=== PATIENT | male | born 1940 | race Caucasian/White ===

== ENCOUNTER 2016-08-17 06:47 | Inpatient (IN) | payer MEDICARE, OTHER ==
[2016-08-17] MEDS ORDERED: Sodium Chloride 0.9% 10 ML Syringe FLUSH PRN ×4 (07:55→12:33)
[2016-08-17] MEDS ORDERED: Lactated Ringers 1,000 ML IV SCH (08:00)
[2016-08-17] MEDS ORDERED: Albuterol/Ipratropium 3.0-0.5 MG/3 ML Neb Soln NEB ONE (08:00)
--- NOTE | 2016-08-17 08:01 | EDM.PDOC ---
ED HPI GENERAL MEDICAL PROBLEM - General Chief Complaint: Gastrointestinal Problem Stated Complaint: BLEEDING Time Seen by Provider: 08/17/16 07:41 Source of Information: Reports: Patient, Family, RN Notes Reviewed History Limitations: Reports: No Limitations - History of Present Illness INITIAL COMMENTS - FREE TEXT/NARRATIVE: 75-year-old gentleman presents emergency department today with bright red blood per rectum, he has had a history of this several years ago secondary to diverticular disease. For this particular event he started feeling dizzy and lightheaded yesterday had some bright red blood per rectum he was incontinent of bloody stool this morning while in the ED he did have a moderate volume bright red blood stool Abdominal Pain Score (Numeric/FACES): 3 - Related Data Allergies Allergy/AdvReac Type Severity Reaction Status Date / Time codeine Allergy Facial Verified 08/17/16 07:16 Swelling Penicillins Allergy Swelling Verified 08/17/16 07:16 Home Meds: Home Meds *Prostate Pill 1 tab PO DAILY 08/17/16 [History] Aspirin 1 tab PO DAILY 08/17/16 [History] Fexofenadine [Alanna] 1 tab PO DAILY 08/17/16 [History] Fluticasone Propionate [Flovent HFA] 1 puff INH ASDIRECTED 08/17/16 [History] Omeprazole Magnesium [Prilosec Otc] 1 tab PO DAILY 08/17/16 [History] Triamterene/Hydrochlorothiazid [Triamterene-HCTZ 37.5-25 MG] 1 tab PO DAILY [History] Past Medical History Cardiovascular History: Reports: CAD, High Cholesterol, Hypertension, [place] Respiratory History: Reports: COPD, SOB Gastrointestinal History: Reports: GERD, GI Bleed Genitourinary History: Reports: BPH Musculoskeletal History: Reports: Fracture Psychiatric History: Reports: Anxiety Hematologic History: Reports: Blood Transfusion(s) - Past Surgical History Cardiovascular Surgical History: Reports: Coronary Artery Bypass GI Surgical History: Reports: Appendectomy, Colon, Hernia Repair/Other Social & Family History - Tobacco Use Smoking Status *Q: Light Tobacco Smoker Years of Tobacco use: 50 Packs/Tins Daily: 0.3 - Recreational Drug Use Recreational Drug Use: No ED ROS GENERAL - Review of Systems Review Of Systems: See Below Constitutional: Denies: Fever, Chills HEENT: Reports: No Symptoms Respiratory: Reports: No Symptoms Cardiovascular: Reports: No Symptoms GI/Abdominal: Reports: Bloody Stool. Denies: Abdominal Pain, Nausea, Vomiting : Reports: No Symptoms Musculoskeletal: Reports: No Symptoms Skin: Reports: No Symptoms Neurological: Reports: No Symptoms ED EXAM, GI/ABD - Physical Exam Exam: See Below Text/Narrative:: General: Elderly male, not in any distress, alert and oriented x3 HEENT: head is atraumatic normocephalic, eyes pupils equal round Neck: Supple no thyromegaly no tracheal deviation. Nodes: Cervical nodes subclavicular nodes nontender no palpable lymphadenopathy noted. Lungs: Wheezing mid to lower lung carter bilaterally CV: Regular rate and rhythm S1 and S2 appreciated no murmurs rubs or gallops noted. Abdomen: Soft, nontender, no palpable masses or organomegaly appreciated, no distention no guarding bowel sounds are present, . Neuro: Cranial nerves II through XII grossly intact Skin: Warm and dry, intact Extremities: No lower extremity edema appreciated, Course - Vital Signs Last Recorded V/S: Last Vital Signs Temp 96.4 F 08/17/16 07:13 Pulse 63 08/17/16 08:26 Resp 16 08/17/16 08:26 BP 141/91 H 08/17/16 08:26 Pulse Ox 97 08/17/16 08:26 - Orders/Labs/Meds Orders: Active Orders 24 hr Category Date Time Status Peripheral IV Care [RC] . DIRECTED Care 08/17/16 07:56 Active Peripheral IV Care [RC] . DIRECTED Care 08/17/16 07:57 Active RT Aerosol Therapy [RC] ASDIRECTED Care 08/17/16 08:00 Active BLOOD BANK HOLD SPECIMEN [BBK] Urgent Lab 08/17/16 08:05 Received Lactated Ringers [Ringers, Lactated] 1,000 ml Med 08/17/16 08:00 Active IV ASDIRECTED Pantoprazole 80 MG in Sodium Chloride 0.9% @ 10 MLS/HR( Med 08/17/16 09:15 Ordered 100ml) Sodium Chloride 0.9% [Normal Saline] 100 ml Pantoprazole [ProTONIX IV] 80 mg IV 10 mls/hr Sodium Chloride 0.9% [Saline Flush] Med 08/17/16 07:55 Active 10 ml FLUSH ASDIRECTED PRN Sodium Chloride 0.9% [Saline Flush] Med 08/17/16 07:55 Active 10 ml FLUSH ASDIRECTED PRN Sodium Chloride 0.9% [Saline Flush] Med 08/17/16 07:56 Active 10 ml FLUSH ASDIRECTED PRN Peripheral IV Insertion Adult [OM.PC] Urgent Oth 08/17/16 07:55 Ordered Peripheral IV Insertion Adult [OM.PC] Urgent Oth 08/17/16 07:56 Ordered Medication Orders Lactated Ringer's (Ringers, Lactated) 1,000 mls @ 500 mls/hr IV ASDIRECTED [place] Last Admin: 08/17/16 08:13 Dose: 500 mls/hr Pantoprazole Sodium 80 mg/ (Sodium Chloride) 100 mls @ 10 mls/hr IV .Q10H [place] Sodium Chloride (Saline Flush) 10 ml FLUSH ASDIRECTED PRN PRN Reason: Keep Vein Open Last Admin: 08/17/16 08:14 Dose: 10 ml Sodium Chloride (Saline Flush) 10 ml FLUSH ASDIRECTED PRN PRN Reason: Keep Vein Open Last Admin: 08/17/16 08:14 Dose: 10 ml Sodium Chloride (Saline Flush) 10 ml FLUSH ASDIRECTED PRN PRN Reason: Keep Vein Open Labs: Laboratory Tests 08/17/16 08/17/16 08/17/16 Range/Units 08:05 08:05 08:05 WBC 8.1 (4.5-11.0) K/uL RBC 4.62 (4.30-5.90) M/uL Hgb 14.1 (12.0-15.0) g/dL Hct 42.2 (40.0-54.0) % MCV 91 (80-98) fL MCH 31 (27-31) pg MCHC 33 (32-36) % Plt Count 217 (150-400) K/uL Neut % (Auto) 80 H (36-66) % Lymph % (Auto) 12 L (24-44) % [place] % (Auto) 7 H (2-6) % Eos % (Auto) 1 L (2-4) % Baso % (Auto) 0 (0-1) % PT 10.7 (9.5-12.0) sec INR 1.00 (0.80-1.20) APTT 26.1 L (27.0-36.0) sec Sodium 139 L (140-148) mmol/L Potassium 4.3 (3.6-5.2) mmol/L Chloride 104 (100-108) mmol/L Carbon Dioxide 25 (21-32) mmol/L Anion Gap 14.3 H (5.0-14.0) mmol/L BUN 25 H (7-18) mg/dL Creatinine 1.1 (0.8-1.3) mg/dL Est Cr Clr Drug Dosing 60.83 mL/min Estimated GFR (MDRD) > 60 (>60) Glucose 114 H (74-106) mg/dL Lactic Acid (0.4-2.0) mmol/L Calcium 8.9 (8.5-10.1) mg/dL Total Bilirubin 1.9 H (0.2-1.0) mg/dL AST 18 (15-37) U/L ALT 23 (12-78) U/L Alkaline Phosphatase 63 (46-116) U/L Total Protein 6.5 (6.4-8.2) g/dL Albumin 3.7 (3.4-5.0) g/dL Globulin 2.8 (2.3-3.5) g/dL Albumin/Globulin Ratio 1.3 (1.2-2.2) 08/17/16 Range/Units 08:05 WBC (4.5-11.0) K/uL RBC (4.30-5.90) M/uL Hgb (12.0-15.0) g/dL Hct (40.0-54.0) % MCV (80-98) fL MCH (27-31) pg MCHC (32-36) % Plt Count (150-400) K/uL Neut % (Auto) (36-66) % Lymph % (Auto) (24-44) % [place] % (Auto) (2-6) % Eos % (Auto) (2-4) % Baso % (Auto) (0-1) % PT (9.5-12.0) sec INR (0.80-1.20) APTT (27.0-36.0) sec Sodium (140-148) mmol/L Potassium (3.6-5.2) mmol/L Chloride (100-108) mmol/L Carbon Dioxide (21-32) mmol/L Anion Gap (5.0-14.0) mmol/L BUN (7-18) mg/dL Creatinine (0.8-1.3) mg/dL Est Cr Clr Drug Dosing mL/min Estimated GFR (MDRD) (>60) Glucose (74-106) mg/dL Lactic Acid 1.2 (0.4-2.0) mmol/L Calcium (8.5-10.1) mg/dL Total Bilirubin (0.2-1.0) mg/dL AST (15-37) U/L ALT (12-78) U/L Alkaline Phosphatase (46-116) U/L Total Protein (6.4-8.2) g/dL Albumin (3.4-5.0) g/dL Globulin (2.3-3.5) g/dL Albumin/Globulin Ratio (1.2-2.2) Meds: Medications Generic Name Dose Route Start Last Admin Trade Name Freq PRN Reason Stop Dose Admin Lactated Ringer's 1,000 mls @ 500 mls/hr 08/17/16 08:00 08/17/16 08:13 Ringers, Lactated IV 500 mls/hr ASDIRECTED [place] Administration Pantoprazole Sodium 80 mg/ 100 mls @ 10 mls/hr 08/17/16 09:15 Sodium Chloride IV .Q10H [place] Sodium Chloride 10 ml 08/17/16 07:55 08/17/16 08:14 Saline Flush FLUSH 10 ml ASDIRECTED PRN Administration Keep Vein Open Sodium Chloride 10 ml 08/17/16 07:55 08/17/16 08:14 Saline Flush FLUSH 10 ml ASDIRECTED PRN Administration Keep Vein Open Sodium Chloride 10 ml 08/17/16 07:56 Saline Flush FLUSH ASDIRECTED PRN Keep Vein Open Discontinued Medications Generic Name Dose Route Start Last Admin Trade Name Freq PRN Reason Stop Dose Admin Albuterol/Ipratropium 3 ml 08/17/16 08:00 08/17/16 08:24 Duoneb 3.0-0.5 Mg/3 Ml NEB 08/17/16 08:01 3 ml ONETIME ONE Administration Pantoprazole Sodium 80 mg 08/17/16 09:11 Protonix Iv IVPUSH 08/17/16 09:12 .BOLUS ONE Departure - Departure Time of Disposition: 09:19 Disposition: Admitted As Inpatient 67 Condition: Fair Clinical Impression: Blood per rectum - Discharge Information Forms: ED Department Discharge - My Orders Last 24 Hours: My Active Orders 08/17/16 07:55 Sodium Chloride 0.9% [Saline Flush] 10 ml FLUSH ASDIRECTED PRN Sodium Chloride 0.9% [Saline Flush] 10 ml FLUSH ASDIRECTED PRN Peripheral IV Insertion Adult [OM.PC] Urgent 08/17/16 07:56 Peripheral IV Care [RC] . DIRECTED Sodium Chloride 0.9% [Saline Flush] 10 ml FLUSH ASDIRECTED PRN Peripheral IV Insertion Adult [OM.PC] Urgent 08/17/16 07:57 Peripheral IV Care [RC] . DIRECTED 08/17/16 08:00 RT Aerosol Therapy [RC] ASDIRECTED Lactated Ringers [Ringers, Lactated] 1,000 ml IV ASDIRECTED 08/17/16 08:05 BLOOD BANK HOLD SPECIMEN [BBK] Urgent 08/17/16 09:15 Pantoprazole 80 MG in Sodium Chloride 0.9% @ 10 MLS/HR(100ml) Sodium Chloride 0.9% [Normal Saline] 100 ml Pantoprazole [ProTONIX IV] 80 mg IV 10 mls/hr - Assessment/Plan Last 24 Hours: My Active Orders 08/17/16 07:55 Sodium Chloride 0.9% [Saline Flush] 10 ml FLUSH ASDIRECTED PRN Sodium Chloride 0.9% [Saline Flush] 10 ml FLUSH ASDIRECTED PRN Peripheral IV Insertion Adult [OM.PC] Urgent 08/17/16 07:56 Peripheral IV Care [RC] . DIRECTED Sodium Chloride 0.9% [Saline Flush] 10 ml FLUSH ASDIRECTED PRN Peripheral IV Insertion Adult [OM.PC] Urgent 08/17/16 07:57 Peripheral IV Care [RC] . DIRECTED 08/17/16 08:00 RT Aerosol Therapy [RC] ASDIRECTED Lactated Ringers [Ringers, Lactated] 1,000 ml IV ASDIRECTED 08/17/16 08:05 BLOOD BANK HOLD SPECIMEN [BBK] Urgent 08/17/16 09:15 Pantoprazole 80 MG in Sodium Chloride 0.9% @ 10 MLS/HR(100ml) Sodium Chloride 0.9% [Normal Saline] 100 ml Pantoprazole [ProTONIX IV] 80 mg IV 10 mls/hr Plan: Assessment Acuity = acute Site and laterality = bright red blood per rectum complicating a patient with known history of diverticular disease, coronary artery disease Etiology = unclear etiology Manifestations = dizziness Location of injury = home Lab values = hemoglobin stable at 14.1 sodium low at 139 consistent hyponatremia total bilirubin elevated 1.9 consistent with hyperbilirubinemia Plan Called discussed case with hospitalist elementary education tutor he agreed to come and evaluate the patient in the ED for admission, 2 IVs have been placed lactated Ringer's running he started on a Protonix drip with a bolus to 2 units of blood have been held Patient was in agreement with the plan all questions were answered. This note was dictated using [employer] voice recognition software please call with any questions.
[2016-08-17] MEDS ORDERED: Pantoprazole 40 MG Vial IVPUSH ONE (09:11)
[2016-08-17] MEDS ORDERED: Sodium Chloride 0.9% 100 ML with Pantoprazole 80 MG IV SCH ×2 (09:15)
--- NOTE | 2016-08-17 12:06 | PCM.HP ---
H&P History of Present Illness - General Date of Service: 08/17/16 Admit Problem/Dx: Admission Diagnosis/Problem Admission Diagnosis/Problem Bleeding Source of Information: Patient, Family, Provider, RN Notes Reviewed History Limitations: Reports: No Limitations - History of Present Illness Initial Comments - Free Text/Narative: This patient is a 75-year-old gentleman was admitted from the emergency department to the intensive care unit with a GI bleed. He did experience some bleeding yesterday morning but it seemed to stop as the day went on, early this morning experience recurrent bleeding and now has presented to the emergency room this morning. He did have a bloody bowel movement in the emergency department, hemoglobin is still fairly good at 14. Thus far he is had no hemodynamic instability. He has a previous history of bleeding diverticuli approximately 18 years ago and did undergo partial colon resection at that time. He had another episode of bleeding approximately 9 months ago that was felt to be in the region of the previous anastomosis in the colon. He reports his stools have been fairly black in color or very dark maroon. There is no history of significant ulcer disease or upper intestinal inflammation. Abdominal Pain Score (Numeric/FACES): 3 - Related Data Allergies/Adverse Reactions: Allergies Allergy/AdvReac Type Severity Reaction Status Date / Time codeine Allergy Facial Verified 08/17/16 07:16 Swelling Penicillins Allergy Swelling Verified 08/17/16 07:16 Home Medications: Home Meds *Prostate Pill 1 tab PO DAILY 08/17/16 [History] Aspirin 1 tab PO DAILY 08/17/16 [History] Fexofenadine [Alanna] 1 tab PO DAILY 08/17/16 [History] Fluticasone Propionate [Flovent HFA] 1 puff INH ASDIRECTED 08/17/16 [History] Omeprazole Magnesium [Prilosec Otc] 1 tab PO DAILY 08/17/16 [History] Triamterene/Hydrochlorothiazid [Triamterene-HCTZ 37.5-25 MG] 1 tab PO DAILY [History] Past Medical History Cardiovascular History: Reports: CAD, High Cholesterol, Hypertension, [place] Respiratory History: Reports: COPD, SOB Gastrointestinal History: Reports: GERD, GI Bleed Genitourinary History: Reports: BPH Musculoskeletal History: Reports: Fracture Psychiatric History: Reports: Anxiety Hematologic History: Reports: Blood Transfusion(s) - Past Surgical History Cardiovascular Surgical History: Reports: Coronary Artery Bypass GI Surgical History: Reports: Appendectomy, Colon, Hernia Repair/Other Social & Family History - Tobacco Use Smoking Status *Q: Light Tobacco Smoker Years of Tobacco use: 50 Packs/Tins Daily: 0.3 - Recreational Drug Use Recreational Drug Use: No H&P Review of Systems - Review of Systems: Review Of Systems: See Below General: Reports: Weakness. Denies: Fever, Chills HEENT: Reports: No Symptoms Pulmonary: Reports: Shortness of Breath. Denies: Wheezing, Pleuritic Chest Pain , Cough, Sputum Cardiovascular: Reports: Dyspnea on Exertion, Lightheadedness. Denies: Chest Pain, Palpitations, Orthopnea, PND, Edema, Syncope Gastrointestinal: Reports: Black Stool, Bloody Stool. Denies: Abdominal Pain, Anorexia, Diarrhea, Decreased Appetite, Nausea, Vomiting Genitourinary: Reports: No Symptoms Musculoskeletal: Reports: No Symptoms Skin: Reports: No Symptoms Psychiatric: Reports: No Symptoms Neurological: Reports: No Symptoms Hematologic/Lymphatic: Reports: No Symptoms Immunologic: Reports: No Symptoms Exam - Exam Exam: See Below - Vital Signs Vital Signs: Last Vital Signs Temp 96.6 F 08/17/16 10:46 Pulse 77 08/17/16 10:46 Resp 16 08/17/16 10:46 BP 158/106 H 08/17/16 10:46 Pulse Ox 96 08/17/16 10:46 Weight: 240 lb 1.334 oz - Exam Quality Assessment: DVT Prophylaxis General: Alert, Oriented, Cooperative HEENT: Conjunctiva Clear, Mucosa Moist & [place], Normal Nasal Septum, Posterior Pharynx Clear, Pupils Equal, Pupils Reactive. No: Hearing Intact Neck: Supple, Trachea Midline, +2 Carotid Pulse wo Bruit Lungs: Clear to Auscultation, Normal Respiratory Effort Cardiovascular: Regular Rate, Regular Rhythm, Normal S1, Normal S2. No: Irregular Rhythm, Bradycardia, Tachycardia, Systolic Murmur, Diastolic Murmur Abdomen: Normal Bowel Sounds, Soft Back Exam: Normal Inspection, Full Range of Motion, NT Extremities: 3, Normal Inspection, 10 Skin: Warm, Dry, Intact Neurological: Cranial Nerves Intact, Strength Equal Bilateral Neuro Extensive - Mental Status: Alert, Oriented x3, Normal Mood/Affect, Normal Cognition - Patient Data Result Diagrams: 08/17/16 08:05 08/17/16 08:05 *Q Meaningful Use (ADM) - VTE *Q VTE Criteria *Q: VTE Pharmacological Contraindications *Q: Active Hemorrhage - VTE Risk Assess *Q Each Risk Factor Represents 1 Point: Obesity (BMI greater than 30) Total Score 1 Point Risk Factors: 1 Each Risk Factor Represents 2 Points: Age 60 - 74 Years Total Score 2 Point Risk Factors: 2 Each Risk Factor Represents 3 Points: None Total Score 3 Point Risk Factors: 0 Each Risk Factor Represents 5 Points: None Total Score 5 Point Risk Factors: 0 Venous Thromboembolism Risk Factor Score *Q: 3 - Stroke *Q Stroke Criteria *Q: - AMI *Q AMI Criteria *Q: Problem List Initiated/Reviewed/Updated: Yes Orders Last 24hrs: Active Orders 24 hr Category Date Time Status Bisacodyl [Dulcolax] Med 08/17/16 13:00 Once 10 mg PO ONETIME ONE Bisacodyl [Dulcolax] Med 08/17/16 20:00 Once 10 mg PO ONETIME ONE Polyethylene Glycol 3350 [MiraLAX] Med 08/17/16 17:00 Once 238 gm PO ONETIME ONE Resuscitation Status Routine Resus Stat 08/17/16 11:04 Ordered Medication Orders Bisacodyl (Dulcolax) 10 mg PO ONETIME ONE Stop: 08/17/16 13:01 Bisacodyl (Dulcolax) 10 mg PO ONETIME ONE Stop: 08/17/16 20:01 Lactated Ringer's (Ringers, Lactated) 1,000 mls @ 500 mls/hr IV ASDIRECTED [facility] Last Admin: 08/17/16 08:13 Dose: 500 mls/hr Pantoprazole Sodium 80 mg/ (Sodium Chloride) 100 mls @ 10 mls/hr IV .Q10H [facility] Last Admin: 08/17/16 09:33 Dose: 10 mls/hr Polyethylene Glycol (Miralax) 238 gm PO ONETIME ONE Stop: 08/17/16 17:01 Sodium Chloride (Saline Flush) 10 ml FLUSH ASDIRECTED PRN PRN Reason: Keep Vein Open Last Admin: 08/17/16 08:14 Dose: 10 ml Sodium Chloride (Saline Flush) 10 ml FLUSH ASDIRECTED PRN PRN Reason: Keep Vein Open Last Admin: 08/17/16 08:14 Dose: 10 ml Sodium Chloride (Saline Flush) 10 ml FLUSH ASDIRECTED PRN PRN Reason: Keep Vein Open Assessment/Plan Comment:: ASSESSMENT AND PLAN GI bleed-he is experienced bleeding yesterday as well as early this morning and again had another bloody bowel movement while in the emergency department. Thus far is been hemodynamically stable and initial hemoglobin level is 14. -Maintain 2 IV sites -Given Protonix 80 mg IV in the ED -Continuous infusion of Protonix 8 mg per hour -Colonoscopy prep -Clear liquid diet, nothing by mouth after midnight -Type and cross to hold 2 units of red blood cells for for their use if needed -Serial hemoglobins every 8 hours Coronary artery disease-status post coronary artery bypass surgery 3-4 years ago. Currently asymptomatic with no symptoms of chest pain or pressure -Continue outpatient medical management COPD-well compensated at the present time -Supplemental oxygen as needed -Nebulizer therapy with albuterol -Continue outpatient medical regimen MAINTENANCE ISSUES -DVT prophylaxis;SCUDs, hold on anticoagulation given active bleeding -GI prophylaxis;Protonix as above -Vidal catheter;not indicated -Nutrition;clear liquid diet nothing by mouth after midnight -Nicotine dependence;not required CODE STATUS-full code ADMISSION STATUS-patient will be admitted to inpatient status, expect at least a 2 night hospital stay for evaluation and management of problems as outlined above. At the time of this admission I do not reasonably expected evaluation and management of this problem will require more than a 96 hour hospital stay. DISPOSITION-anticipate discharge to home after the hospital stay. PRIMARY CARE PROVIDER-receives his medical care with primary care in the [facility]
[2016-08-17] MEDS ORDERED: Ondansetron 4 MG/2 ML SDV IV PRN (12:33)
[2016-08-17] MEDS ORDERED: Morphine 2 MG/ML Syringe IVPUSH PRN (12:33)
[2016-08-17] MEDS ORDERED: Albuterol 0.083% 2.5 MG/3 ML Neb Soln NEB PRN (12:33)
[2016-08-17] MEDS ORDERED: FLUTICASONE PROPIONATE INH SCH (12:33)
[2016-08-17] MEDS ORDERED: Zolpidem 5 MG Tab PO PRN (12:33)
[2016-08-17] MEDS ORDERED: LORazepam 2 MG/ML MDV IVPUSH PRN (12:33)
[2016-08-17] MEDS ORDERED: Bisacodyl 5 MG Tab PO ONE ×2 (13:00→20:00)
[2016-08-17] MEDS: Mometasone Furoate Powder 220 MCG/Puff 14 Dose Inhaler INH SCH (14:32)
[2016-08-17] MEDS: Lactated Ringers 1,000 ML IV SCH (16:21)
[2016-08-17] MEDS ORDERED: Polyethylene Glycol 3350 Powder 238 GM Bot PO ONE (17:00)
[2016-08-17] MEDS: Sodium Chloride 0.9% 100 ML with Pantoprazole 80 MG IV SCH ×2 (19:49)
[2016-08-18] MEDS: Lactated Ringers 1,000 ML IV SCH ×2 (00:28→08:25)
[2016-08-18] MEDS: Sodium Chloride 0.9% 100 ML with Pantoprazole 80 MG IV SCH ×2 (05:55)
[2016-08-18] MEDS: Mometasone Furoate Powder 220 MCG/Puff 14 Dose Inhaler INH SCH (07:12)
[2016-08-18] MEDS ORDERED: Aspirin 81 MG Tab.Chew PO SCH (09:00)
--- NOTE | 2016-08-18 09:36 | PCM.PN ---
- General Info Date of Service: 08/18/16 Functional Status: Reports: ambulating, urinating - Review of Systems General: Reports: No Symptoms Pulmonary: Reports: no symptoms Cardiovascular: Reports: No Symptoms Gastrointestinal: Reports: No symptoms Systems Review Comment:: This patient has been stable since admission yesterday with no further evidence of active bleeding. After initial hydration hemoglobin has remained stable and he has completed his colonoscopy prep. Vital signs have been within the desired range and he has remained afebrile. Colonoscopy and EGD are pending this morning. - Patient Data Vitals - most recent: Last Vital Signs Temp 97.7 F 08/18/16 08:00 Pulse 59 L 08/18/16 08:00 Resp 15 08/18/16 08:00 BP 160/100 H 08/18/16 08:00 Pulse Ox 96 08/18/16 08:00 Weight - most recent: 241 lb 15.987 oz I&O - last 24 hours: Intake & Output 08/17/16 08/18/16 08/18/16 22:59 06:59 14:59 Intake Total 2540 1674 Output Total 1725 900 Balance 815 1674 -900 Lab Results last 24 hrs: Laboratory Results - last 24 hr 08/17/16 08/17/16 08/18/16 Range/Units 12:41 18:39 00:34 WBC 6.9 7.9 8.5 (4.5-11.0) K/uL RBC 4.22 L 4.63 4.09 L (4.30-5.90) M/uL Hgb 12.8 14.0 12.6 (12.0-15.0) g/dL Hct 38.9 L 42.5 37.6 L (40.0-54.0) % MCV 92 92 92 (80-98) fL MCH 30 30 31 (27-31) pg MCHC 33 33 34 (32-36) % Plt Count 206 218 204 (150-400) K/uL Neut % (Auto) 72 H 77 H 71 H (36-66) % Lymph % (Auto) 19 L 16 L 18 L (24-44) % Trigg % (Auto) 8 H 7 H 9 H (2-6) % Eos % (Auto) 1 L 1 L 2 (2-4) % Baso % (Auto) 0 0 0 (0-1) % Sodium (140-148) mmol/L Potassium (3.6-5.2) mmol/L Chloride (100-108) mmol/L Carbon Dioxide (21-32) mmol/L Anion Gap (5.0-14.0) mmol/L BUN (7-18) mg/dL Creatinine (0.8-1.3) mg/dL Est Cr Clr Drug Dosing mL/min Estimated GFR (MDRD) (>60) Glucose (74-106) mg/dL Calcium (8.5-10.1) mg/dL 08/18/16 08/18/16 Range/Units 05:11 05:11 WBC 7.0 (4.5-11.0) K/uL RBC 4.01 L (4.30-5.90) M/uL Hgb 12.2 (12.0-15.0) g/dL Hct 36.9 L (40.0-54.0) % MCV 92 (80-98) fL MCH 30 (27-31) pg MCHC 33 (32-36) % Plt Count 189 (150-400) K/uL Neut % (Auto) 70 H (36-66) % Lymph % (Auto) 18 L (24-44) % Trigg % (Auto) 10 H (2-6) % Eos % (Auto) 3 (2-4) % Baso % (Auto) 0 (0-1) % Sodium 140 (140-148) mmol/L Potassium 3.7 (3.6-5.2) mmol/L Chloride 106 (100-108) mmol/L Carbon Dioxide 28 (21-32) mmol/L Anion Gap 5.7 (5.0-14.0) mmol/L BUN 15 (7-18) mg/dL Creatinine 1.0 (0.8-1.3) mg/dL Est Cr Clr Drug Dosing 67.97 mL/min Estimated GFR (MDRD) > 60 (>60) Glucose 96 (74-106) mg/dL Calcium 8.3 L (8.5-10.1) mg/dL Med Orders - Current: Current Medications Albuterol (Proventil Neb Soln) 2.5 mg NEB Q4H PRN PRN Reason: Shortness Of Breath/wheezing Aspirin (Aspirin) 81 mg PO DAILY [place] Lactated Ringer's (Ringers, Lactated) 1,000 mls @ 125 mls/hr IV ASDIRECTED [facility] Last Admin: 08/18/16 08:25 Dose: 125 mls/hr Pantoprazole Sodium 80 mg/ (Sodium Chloride) 100 mls @ 10 mls/hr IV .Q10H [facility] Last Admin: 08/18/16 05:55 Dose: 10 mls/hr Loratadine (Claritin) 10 mg PO DAILY [facility] Lorazepam (Ativan) 0.5 mg IVPUSH Q4H PRN PRN Reason: Anxiety Last Admin: 08/17/16 16:22 Dose: 0.5 mg Mometasone Furoate (Asmanex 220 Mcg) 1 puff INH DAILY@0700 [facility] Last Admin: 08/18/16 07:12 Dose: 1 puff Morphine Sulfate (Morphine) 2 mg IVPUSH Q30M PRN PRN Reason: Pain (severe 7-10) Ondansetron HCl (Zofran) 4 mg IV Q4H PRN PRN Reason: Nausea/Vomiting Sodium Chloride (Saline Flush) 10 ml FLUSH ASDIRECTED PRN PRN Reason: Keep Vein Open Zolpidem Tartrate (Ambien) 5 mg PO BEDTIME PRN PRN Reason: Insomnia Last Admin: 08/18/16 00:11 Dose: 5 mg Discontinued Medications Albuterol/Ipratropium (Duoneb 3.0-0.5 Mg/3 Ml) 3 ml NEB ONETIME ONE Stop: 08/17/16 08:01 Last Admin: 08/17/16 08:24 Dose: 3 ml Bisacodyl (Dulcolax) 10 mg PO ONETIME ONE Stop: 08/17/16 13:01 Last Admin: 08/17/16 14:05 Dose: 10 mg Bisacodyl (Dulcolax) 10 mg PO ONETIME ONE Stop: 08/17/16 20:01 Last Admin: 08/17/16 20:04 Dose: 10 mg Lactated Ringer's (Ringers, Lactated) 1,000 mls @ 500 mls/hr IV ASDIRECTED [facility] Last Admin: 08/17/16 08:13 Dose: 500 mls/hr Pantoprazole Sodium 80 mg/ (Sodium Chloride) 100 mls @ 10 mls/hr IV .Q10H [facility] Last Admin: 08/17/16 09:33 Dose: 10 mls/hr Pantoprazole Sodium (Protonix Iv) 80 mg IVPUSH .BOLUS ONE Stop: 08/17/16 09:12 Last Admin: 08/17/16 09:32 Dose: 80 mg Polyethylene Glycol (Miralax) 238 gm PO ONETIME ONE Stop: 08/17/16 17:01 Last Admin: 08/17/16 17:14 Dose: 238 gram Sodium Chloride (Saline Flush) 10 ml FLUSH ASDIRECTED PRN PRN Reason: Keep Vein Open Last Admin: 08/17/16 08:14 Dose: 10 ml Sodium Chloride (Saline Flush) 10 ml FLUSH ASDIRECTED PRN PRN Reason: Keep Vein Open Last Admin: 08/17/16 08:14 Dose: 10 ml Sodium Chloride (Saline Flush) 10 ml FLUSH ASDIRECTED PRN PRN Reason: Keep Vein Open - Exam Quality Assessment: DVT prophylaxis General: alert, oriented, cooperative, no acute distress Lungs: Clear to auscultation, Normal respiratory effort Cardiovascular: Regular Rate, Regular Rhythm, Murmurs Abdomen: bowel sounds present, soft, no tenderness, no distension Extremities: no edema Skin: warm, dry, intact - Problem List Review Problem List Initiated/Reviewed/Updated: Yes - My Orders Last 24 Hours: My Active Orders 08/17/16 11:04 Resuscitation Status Routine 08/17/16 12:33 Patient Status [ADT] Routine Intake and Output [RC] QSHIFT Notify Provider Consults [RC] ASDIRECTED Notify Provider Vital Signs [RC] ASDIRECTED Oxygen Therapy [RC] PRN Peripheral IV Care [RC] Q12H RT Aerosol Therapy [RC] ASDIRECTED Up With Assistance [RC] ASDIRECTED VTE/DVT Education [RC] Per Unit Routine Vital Signs [RC] Q2H Consult to Physician [CONS] Routine Albuterol [Proventil Neb Soln] 2.5 mg NEB Q4H PRN LORazepam [Ativan] 0.5 mg IVPUSH Q4H PRN Lactated Ringers [Ringers, Lactated] 1,000 ml IV ASDIRECTED Morphine 2 mg IVPUSH Q30M PRN Ondansetron [Zofran] 4 mg IV Q4H PRN Sodium Chloride 0.9% [Saline Flush] 10 ml FLUSH ASDIRECTED PRN Zolpidem [Ambien] 5 mg PO BEDTIME PRN Peripheral IV Insertion Adult [OM.PC] Routine Saline Lock Insert [OM.PC] Routine Sequential Compression Device [OM.PC] Per Unit Routine VTE Pharmacological Contraindications [AST] Per Unit Routine 08/17/16 15:00 Mometasone Furoate [Asmanex 220 MCG] 1 puff INH DAILY@0700 08/17/16 19:30 Sodium Chloride 0.9% [Normal Saline] 100 ml Pantoprazole [ProTONIX IV] 80 mg IV 10 mls/hr 08/18/16 17:00 HGB [HEMOGLOBIN] [HEME] Urgent 08/18/16 Breakfast Nothing per Oral After Midnight Diet [DIET] 08/19/16 05:00 BASIC METABOLIC PANEL,BMP [CHEM] Timed CBC WITH AUTO DIFF [HEME] Timed - Plan Plan:: ASSESSMENT AND PLAN GI bleed-no evidence of active bleeding since admission, he has remained hemodynamically stable -Colonoscopy and EGD with Dr. Last this morning -Maintain 2 IV sites -Given Protonix 80 mg IV in the ED -Continuous infusion of Protonix 8 mg per hour -Nothing by mouth until after colonoscopy -Type and cross to hold 2 units of red blood cells for for their use if needed -Serial hemoglobins every 12 hours Coronary artery disease-status post coronary artery bypass surgery 3-4 years ago. Currently asymptomatic with no symptoms of chest pain or pressure -Continue outpatient medical management COPD-well compensated at the present time -Supplemental oxygen as needed -Nebulizer therapy with albuterol -Continue outpatient medical regimen MAINTENANCE ISSUES -DVT prophylaxis;SCUDs, hold on anticoagulation given active bleeding -GI prophylaxis;Protonix as above -Vidal catheter;not indicated -Nutrition;clear liquid diet nothing by mouth after midnight -Nicotine dependence;not required CODE STATUS-full code ADMISSION STATUS-patient will be admitted to inpatient status, expect at least a 2 night hospital stay for evaluation and management of problems as outlined above. At the time of this admission I do not reasonably expected evaluation and management of this problem will require more than a 96 hour hospital stay. DISPOSITION-anticipate discharge to home after the hospital stay. PRIMARY CARE PROVIDER-receives his medical care with primary care in the [facility]
[2016-08-18] MEDS ORDERED: fentaNYL 100 MCG/2 ML SDV ONE (10:55)
[2016-08-18] MEDS ORDERED: Midazolam 1 MG/ML 2 ML SDV ONE (10:55)
[2016-08-18] MEDS ORDERED: Propofol 200 MG/20 ML SDV ONE (10:55)
[2016-08-18] MEDS: Loratadine 10 MG Tab PO SCH (13:00)
[2016-08-18] MEDS: Lisinopril 10 MG Tab PO SCH (21:51)
--- NOTE | 2016-08-19 03:10 | PCM.SN ---
- Free Text/Narrative Note: time; 03:09 call from [address] [place] [address]; bloody stool 30cc a; rectal bleeding p; continue to monitor. last hgb 12.7.
[2016-08-19] MEDS: Mometasone Furoate Powder 220 MCG/Puff 14 Dose Inhaler INH SCH (07:44)
[2016-08-19] MEDS: Lisinopril 10 MG Tab PO SCH (09:16)
[2016-08-19] MEDS: Loratadine 10 MG Tab PO SCH (09:16)
[2016-08-19 11:43] VITALS: BP 159/87
--- NOTE | 2016-08-19 12:02 | PCM.DCSUM1 ---
Discharge Summary - Hospital Course Brief History: This patient is a 75-year-old gentleman who was admitted through the emergency department with a 24-hour history of bloody stools. - Discharge Data Discharge Date: 08/19/16 Discharge Disposition: Home, Self-Care 01 Condition: Fair - Discharge Diagnosis/Problem(s) (1) Diverticular hemorrhage SNOMED Code(s): 949632318, [id number] ICD Code: K57.31 - DVRTCLOS OF LG INT W/O PERFORATION OR ABSCESS W BLEEDING Status: Acute Current Visit: Yes - Patient Summary/Data Consults: Consultations 08/17/16 12:33 Consult to Physician [CONS] Routine Consulting Provider: Parveen Last Call Completed to Consulting Physician: Yes Reason for Consult: GI bleed Hospital Course: Mr. Elliott is a 75-year-old gentleman who had experienced several bloody stools in the 24-hour period prior to admission. On evaluation he reported feeling somewhat weak and mildly lightheaded, hemoglobin was 14. He was witnessed to have one relatively large bloody stool while in the emergency department. There is a past history of lower GI bleeds, approximately 18 years ago he had a diverticular bleed and underwent partial colon resection. 9 months ago also had a lower GI bleed that resolved spontaneously. He is from the [facility] but up in the area for a week of vacation. He was admitted to the hospital and given IV fluids for hydration, serial hemoglobin levels were obtained. After initial drop in hemoglobin from 14-12 his hemoglobin level remains stable through the rest of his hospital stay. On the day after admission he was seen and evaluated by Dr. Last, EGD was performed which showed no obvious source of bleeding or significant abnormalities. Colonoscopy showed evidence of ongoing diverticular bleed. In the next 24 hours he had 2 episodes of bloody stools although they were of relatively small amounts. On the day of discharge the patient was strongly encouraged consider additional 24 hours of monitoring in the hospital which he refused. On his request he will be discharged to home and the plan to travel back to the [facility] today. He should remain off of aspirin for at least a week or 2 following discharge and discuss the ongoing use of aspirin with his primary care provider. Follow-up appointment should be scheduled with his primary care provider within 2-3 days in a hemoglobin level should be obtained at the time of that appointment. His hemoglobin at the time of discharge from this facility is 12.3. Activity will be as tolerated and I've instructed him to remain on a soft low residue diet. If he notes recurrent significant bleeding he should present immediately to the closest emergency department for reevaluation. - Patient Instructions Diet: GI Soft/Low Residue/Low Fiber Activity: As Tolerated Other/Special Instructions: Hold aspirin for 1-2 weeks after discharge. Please schedule follow-up appointment with primary care provider in 2-3 days, hemoglobin should be obtained at the time of follow-up appointment. Return to the emergency room immediately if he notes recurrent bleeding. - Discharge Plan Home Medications: Home Meds Omeprazole Magnesium [Prilosec Otc] 1 tab PO DAILY 08/17/16 [History] Tamsulosin [Flomax] 0.4 mg PO DAILY 08/17/16 [History] Lisinopril 10 mg PO QAM 08/18/16 [History] atorvaSTATin [Lipitor] 80 mg PO BEDTIME 08/18/16 [History] traZODone 50 mg PO BEDTIME PRN 08/18/16 [History] Patient Handouts: Soft-Food Meal Plan - Patient Data Vitals - Most Recent: Last Vital Signs Temp 97.6 F 08/19/16 11:40 Pulse 59 L 08/19/16 11:40 Resp 18 08/19/16 11:40 BP 159/87 H 08/19/16 11:40 Pulse Ox 97 08/19/16 11:40 Weight - Most Recent: 241 lb 15.987 oz I&O - Last 24 hours: Intake & Output 08/18/16 08/19/16 08/19/16 22:59 06:59 14:59 Intake Total 1095 Output Total 1400 550 500 Balance -305 550 -500 Lab Results - Last 24 hrs: Laboratory Results - last 24 hr 08/18/16 08/19/16 08/19/16 Range/Units 17:05 05:30 05:30 WBC 7.1 (4.5-11.0) K/uL RBC 4.11 L (4.30-5.90) M/uL Hgb 12.7 12.3 (12.0-15.0) g/dL Hct 37.9 L (40.0-54.0) % MCV 92 (80-98) fL MCH 30 (27-31) pg MCHC 33 (32-36) % Plt Count 195 (150-400) K/uL Neut % (Auto) 73 H (36-66) % Lymph % (Auto) 15 L (24-44) % Edgar % (Auto) 9 H (2-6) % Eos % (Auto) 3 (2-4) % Baso % (Auto) 0 (0-1) % Sodium 142 (140-148) mmol/L Potassium 3.8 (3.6-5.2) mmol/L Chloride 106 (100-108) mmol/L Carbon Dioxide 30 (21-32) mmol/L Anion Gap 6.5 (5.0-14.0) mmol/L BUN 12 (7-18) mg/dL Creatinine 1.1 (0.8-1.3) mg/dL Est Cr Clr Drug Dosing 61.74 mL/min Estimated GFR (MDRD) > 60 (>60) Glucose 91 (74-106) mg/dL Calcium 8.7 (8.5-10.1) mg/dL Med Orders - Current: Current Medications Albuterol (Proventil Neb Soln) 2.5 mg NEB Q4H PRN PRN Reason: Shortness Of Breath/wheezing Lisinopril (Prinivil) 10 mg PO DAILY [facility] Last Admin: 08/19/16 09:16 Dose: 10 mg Loratadine (Claritin) 10 mg PO DAILY [facility] Last Admin: 08/19/16 09:16 Dose: 10 mg Lorazepam (Ativan) 0.5 mg IVPUSH Q4H PRN PRN Reason: Anxiety Last Admin: 08/17/16 16:22 Dose: 0.5 mg Mometasone Furoate (Asmanex 220 Mcg) 1 puff INH DAILY@0700 [facility] Last Admin: 08/19/16 07:44 Dose: 1 puff Morphine Sulfate (Morphine) 2 mg IVPUSH Q30M PRN PRN Reason: Pain (severe 7-10) Ondansetron HCl (Zofran) 4 mg IV Q4H PRN PRN Reason: Nausea/Vomiting Sodium Chloride (Saline Flush) 10 ml FLUSH ASDIRECTED PRN PRN Reason: Keep Vein Open Zolpidem Tartrate (Ambien) 5 mg PO BEDTIME PRN PRN Reason: Insomnia Last Admin: 08/18/16 00:11 Dose: 5 mg Discontinued Medications Albuterol/Ipratropium (Duoneb 3.0-0.5 Mg/3 Ml) 3 ml NEB ONETIME ONE Stop: 08/17/16 08:01 Last Admin: 08/17/16 08:24 Dose: 3 ml Aspirin (Aspirin) 81 mg PO DAILY [facility] Last Admin: 08/18/16 13:00 Dose: 81 mg Bisacodyl (Dulcolax) 10 mg PO ONETIME ONE Stop: 08/17/16 13:01 Last Admin: 08/17/16 14:05 Dose: 10 mg Bisacodyl (Dulcolax) 10 mg PO ONETIME ONE Stop: 08/17/16 20:01 Last Admin: 08/17/16 20:04 Dose: 10 mg Fentanyl (Sublimaze) Confirm Administered Dose 100 mcg .ROUTE .STK-MED ONE Stop: 08/18/16 10:56 Lactated Ringer's (Ringers, Lactated) 1,000 mls @ 500 mls/hr IV ASDIRECTED [facility] Last Admin: 08/17/16 08:13 Dose: 500 mls/hr Pantoprazole Sodium 80 mg/ (Sodium Chloride) 100 mls @ 10 mls/hr IV .Q10H [facility] Last Admin: 08/17/16 09:33 Dose: 10 mls/hr Lactated Ringer's (Ringers, Lactated) 1,000 mls @ 125 mls/hr IV ASDIRECTED [facility] Last Admin: 08/18/16 08:25 Dose: 125 mls/hr Pantoprazole Sodium 80 mg/ (Sodium Chloride) 100 mls @ 10 mls/hr IV .Q10H [facility] Last Admin: 08/18/16 05:55 Dose: 10 mls/hr Midazolam HCl (Versed 1 Mg/Ml) Confirm Administered Dose 2 mg .ROUTE .STK-MED ONE Stop: 08/18/16 10:56 Pantoprazole Sodium (Protonix Iv) 80 mg IVPUSH .BOLUS ONE Stop: 08/17/16 09:12 Last Admin: 08/17/16 09:32 Dose: 80 mg Polyethylene Glycol (Miralax) 238 gm PO ONETIME ONE Stop: 08/17/16 17:01 Last Admin: 08/17/16 17:14 Dose: 238 gram Propofol (Diprivan 20 Ml) Confirm Administered Dose 200 mg .ROUTE .STK-MED ONE Stop: 08/18/16 10:56 Sodium Chloride (Saline Flush) 10 ml FLUSH ASDIRECTED PRN PRN Reason: Keep Vein Open Last Admin: 08/17/16 08:14 Dose: 10 ml Sodium Chloride (Saline Flush) 10 ml FLUSH ASDIRECTED PRN PRN Reason: Keep Vein Open Last Admin: 08/17/16 08:14 Dose: 10 ml Sodium Chloride (Saline Flush) 10 ml FLUSH ASDIRECTED PRN PRN Reason: Keep Vein Open *Q Meaningful Use (DIS) - VTE *Q VTE Criteria *Q: VTE Pharmacological Contraindications *Q: Active Hemorrhage - Stroke *Q Stroke Criteria *Q: - AMI *Q AMI Criteria *Q:
--- NOTE | 2016-08-21 09:31 | OR ---
DATE OF PROCEDURE: 08/18/2016 PROCEDURE: Colonoscopy. FINDINGS: 1. Active GI bleeding ([id number]), most likely etiology diverticulosis. 2. Normal small ball colon anastomosis. COMPLICATIONS: None. PET ADOPTION COUNSELOR: None. ANESTHETIC: MAC. PREOPERATIVE DIAGNOSIS: Gastrointestinal bleeding. POSTOPERATIVE DIAGNOSIS: Gastrointestinal bleeding. RISKS: Risks, benefits, alternatives, and limitations, including, but not limited to infection, bleeding, and perforation were explained to the patient and wished to proceed. PROCEDURE IN DETAIL: The patient was placed in left lateral decubitus position. Digital rectal exam was performed. This confirmed the side of the abnormality. The scope was introduced and advanced atraumatically to the ileocecal valve. The scope was brought back to the ascending, transverse, descending colon, and retroflexed. There was evidence of blood. Blood to be described as moderate in nature, however, no exact nidus of bleeding could be determined, however, most likely location of this bleeding was at about 50 cm. The patient has diverticulosis was throughout the remainder of his colon and his anatomy was consistent with previous right hemicolectomy. On retroflex, there were no abnormalities. There were no polyps. The prep was moderately acceptable with blood noted to be retrained thus precluding complete visualization of the colon, however, approximately 90% luminal surface could be seen. The patient tolerated the procedure well. Parveen Last MD /[id number]
== END 2016-08-19 13:10 | disposition home or self-care (01) | DRG 379 ==
LOC: JP.ED 06:47 → JP.ICU 11:01 → JP.MS 08-18 14:30
PROVIDERS: ADMIT Hospitalist; ATTEND Hospitalist
PROC: 0DJD8ZZ Inspection of Lower Intestinal Tract, Via Natural or Artificial Opening Endoscopic (ICD-10-PCS; principal; 2016-08-18)
DX: K57.31 Diverticulosis of large intestine without perforation or abscess with bleeding (principal); I10 Essential (primary) hypertension; I25.10 Atherosclerotic heart disease of native coronary artery without angina pectoris; F17.210 Nicotine dependence, cigarettes, uncomplicated; J44.9 Chronic obstructive pulmonary disease, unspecified; K21.9 Gastro-esophageal reflux disease without esophagitis; E78.00 Pure hypercholesterolemia, unspecified; I25.2 Old myocardial infarction; N40.0 Benign prostatic hyperplasia without lower urinary tract symptoms; F41.9 Anxiety disorder, unspecified; Z95.1 Presence of aortocoronary bypass graft; Z88.5 Allergy status to narcotic agent; Z88.0 Allergy status to penicillin; Z90.49 Acquired absence of other specified parts of digestive tract; K62.5 Hemorrhage of anus and rectum
CPT/HCPCS: 36415; 80053; 83605; 85025; 85610; 85730; 86850; 86870; 86900 ×2; 86901; 96361; 96374; 99284; C9113 ×2; J7030; J7050 ×2; J7120; J7620; 80048; 85018; 94640-76; 94664; A9270-GY; J2060; J2250; J2704; J3010